=== PATIENT | male | born 1960 | race African-American/Black ===

== ENCOUNTER 2018-08-23 01:34 | Emergency (ER) | payer MEDICAID ==
[~2018-08-23] VITALS: Ht 180.3 cm; Wt 78.9 kg
[~2018-08-23 01:34] MED LIST: FLUT16SP2 BOTHNARES; HYDR-3965 PO; RIFA300C4 PO; TRAM50TA2 PO
[2018-08-23 01:36] VITALS: BP 153/96
[2018-08-23] MEDS ORDERED: IBUP-1984 PO (02:57)
[2018-08-23] MEDS ORDERED: NEOM28.44 TP (02:57)
[2018-08-23] MEDS: ondansetron 4mg rapidly disintigrating tab PO ONE (03:18)
[2018-08-23] MEDS: bacitracin 15gm ointment TP ONE (03:18)
[2018-08-23] MEDS: HYDROcodone/acetaminophen 5mg/325mg tablet PO ONE (03:19)
[2018-08-23] MEDS: ketorolac trometh inj. 60 MG/2 ML VIAL IM ONE (03:20)
== END 2018-08-23 03:26 | disposition home or self-care (01) ==
LOC: ER 01:34
DX: T23.221A Burn of second degree of single right finger (nail) except thumb, initial encounter (principal); F15.90 Other stimulant use, unspecified, uncomplicated; Z79.899 Other long term (current) drug therapy; X08.8XXA Exposure to other specified smoke, fire and flames, initial encounter; Y93.89 Activity, other specified; Y92.89 Other specified places as the place of occurrence of the external cause; Y99.8 Other external cause status
CPT/HCPCS: 16020; 96372; 99284; J1885

== ENCOUNTER 2018-08-30 16:55 | Emergency (ER) | payer MEDICAID ==
[~2018-08-30] VITALS: Ht 180.3 cm; Wt 67.0 kg
[~2018-08-30 16:55] MED LIST changes: +IBUP-1984 PO; +NEOM28.44 TP
[2018-08-30] MEDS ORDERED: nitroGLYCERIN 0.4mg SUBLingual tab SL PRN (17:05)
[2018-08-30] MEDS ORDERED: aspirin 81mg tab.chew PO ONE (17:05)
[2018-08-30 17:41] LABS: ALANINE AMINOTRANSFERASE 70 U/L (12-78); ALBUMIN 3.9 G/DL (3.4-5.0); ALBUMIN/GLOBULIN RATIO 0.9 (1.1-1.5); ALKALINE PHOSPHATASE 88 IU/L (46-116); ANION GAP 10 (8-16); ASPARTATE AMINO TRANSFERASE 34 U/L (10-37); BILIRUBIN,TOTAL 0.3 MG/DL (0.1-1.0); BLOOD UREA NITROGEN 21 MG/DL (7-18); BUN/CREATININE RATIO 18.8 (5.4-32.0); CALCIUM 9.5 MG/DL (8.5-10.1); CHLORIDE 100 MMOL/L (99-107); CREATININE 1.12 MG/DL (0.60-1.10); GLUCOSE 144 MG/DL (70-104); POTASSIUM 4.2 MMOL/L (3.5-5.1); SODIUM 139 MMOL/L (135-145); TOTAL CARBON DIOXIDE 29.4 MMOL/L (24-32); TOTAL PROTEIN 8.1 G/DL (6.4-8.2); eGFR 82 ML/MIN
[2018-08-30 17:53] LABS: HEMOGLOBIN 14.6 g/dl (14.0-17.9); RED BLOOD COUNT 4.61 X10'6 (4.70-6.10); WHITE BLOOD COUNT 6.3 X10'3 (4.5-11.0)
[2018-08-30 17:54] LABS: D-DIMER 0.56 MG/L FEU (0-0.50); HEMATOCRIT 42.4 % (42.0-52.0); MEAN CORPUSCULAR HEMOGLOBIN 31.7 PG (27.0-31.0); MEAN CORPUSCULAR HGB CONC 34.5 % (33.0-36.5); MEAN PLATELET VOLUME 7.6 FL (7.4-10.4); PARTIAL THROMBOPLASTIN TIME 30 SECONDS (22-32); PLATELET COUNT 423 X10'3 (140-440); PROTHROMBIN TIME 9.7 SECONDS (9.0-12.0); RED CELL DISTRIBUTION WIDTH 14.1 % (11.5-14.5)
[2018-08-30 18:01] LABS: PLATELET ESTIMATE NORMAL; TOTAL CELLS COUNTED 100
[2018-08-30 18:02] LABS: SMUDGE CELLS 1+
[2018-08-30] MEDS ORDERED: iohexol 350MG/ML 100ml bottle IV ONE (18:03)
[2018-08-30 18:09] LABS: ETHANOL < 0.010 GM/DL (0.0-0.010)
[2018-08-30 19:15] LABS: URINE AMPHETAMINE SCREEN POSITIVE (Neg); URINE BARBITUATE SCREEN NEGATIVE (Neg); URINE BENZODIAZEPINES SCREEN NEGATIVE (Neg); URINE CANNABINOID SCREEN POSITIVE (Neg); URINE COCAINE SCREEN NEGATIVE (Neg); URINE METHADONE SCREEN NEGATIVE (Neg); URINE OPIATE SCREEN POSITIVE (Neg); URINE PHENCYCLIDINE SCREEN NEGATIVE (Neg)
[2018-08-30] MEDS ORDERED: SILV20CR13 TOP (19:30)
[2018-08-30] MEDS ORDERED: CEPH-571 PO (19:30)
[2018-08-30 20:05] VITALS: BP 132/72
== END 2018-08-30 20:06 | disposition home or self-care (01) ==
LOC: ER 16:56
DX: R07.89 Other chest pain (principal); R06.02 Shortness of breath; F15.10 Other stimulant abuse, uncomplicated; L03.011 Cellulitis of right finger; R53.1 Weakness; R11.0 Nausea; R00.0 Tachycardia, unspecified; R49.0 Dysphonia; F19.10 Other psychoactive substance abuse, uncomplicated; Z79.899 Other long term (current) drug therapy
CPT/HCPCS: 36415; 71045; 71275; 80053; 80305; 80320; 83880; 84484; 85025; 85379; 85610; 85730; 93005; 99284; Q9967

== ENCOUNTER 2019-02-09 16:38 | Emergency (ER) | payer MEDICAID ==
[~2019-02-09] VITALS: Ht 180.3 cm; Wt 40.9 kg
[~2019-02-09 16:38] MED LIST changes: +CEPH-571 PO; -IBUP-1984 PO; +SILV20CR13 TOP
[2019-02-09 17:58] LABS: BASOPHILS # (AUTO) 0.1 X10'3 (0-0.2); BASOPHILS % (AUTO) 1.1 % (0-1); EOSINOPHILS # (AUTO) 0.2 X10'3 (0-0.9); EOSINOPHILS % (AUTO) 3.9 % (0-6); HEMATOCRIT 41.7 % (42.0-52.0); HEMOGLOBIN 13.8 g/dl (14.0-17.9); LYMPHOCYTES % (AUTO) 40.7 % (21-51); MEAN CORPUSCULAR HEMOGLOBIN 30.3 PG (27.0-31.0); MEAN CORPUSCULAR HGB CONC 33.1 g/dL (33.0-36.5); MEAN CORPUSCULAR VOLUME 91.3 FL (78-98); MEAN PLATELET VOLUME 7.7 FL (7.4-10.4); MONOCYTES # (AUTO) 0.4 X10'3 (0-0.9); MONOCYTES % (AUTO) 8.3 % (2-12); NEUTROPHILS # (AUTO) 2.3 X10'3 (1.8-7.7); PLATELET COUNT 350 X10'3 (140-440); RED BLOOD COUNT 4.56 X10'6 (4.70-6.10); RED CELL DISTRIBUTION WIDTH 15.6 % (11.5-14.5); WHITE BLOOD COUNT 4.9 X10'3 (4.5-11.0)
[2019-02-09 18:12] LABS: ALANINE AMINOTRANSFERASE 64 U/L (12-78); ALBUMIN 3.8 G/DL (3.4-5.0); ALKALINE PHOSPHATASE 108 IU/L (46-116); AMYLASE 47 U/L (25-115); ANION GAP 5 (8-16); ASPARTATE AMINO TRANSFERASE 37 U/L (10-37); BILIRUBIN,TOTAL 0.2 MG/DL (0.1-1.0); BLOOD UREA NITROGEN 12 MG/DL (7-18); BUN/CREATININE RATIO 11.1 (5.4-32.0); CHLORIDE 104 MMOL/L (99-107); CREATININE 1.08 MG/DL (0.60-1.10); GLUCOSE 114 MG/DL (70-104); LIPASE 72 U/L (73-393); SODIUM 139 MMOL/L (135-145); TOTAL CARBON DIOXIDE 29.6 MMOL/L (24-32); TOTAL PROTEIN 7.8 G/DL (6.4-8.2); eGFR 85 ML/MIN
[2019-02-09 18:20] VITALS: BP 171/86
[2019-02-09 18:30] LABS: CLARITY,URINE CLEAR (Clear); COLOR,URINE YELLOW (Yellow); GLUCOSE, URINE NEGATIVE (Neg); KETONES,URINE NEGATIVE (Neg); LEUKOCYTE ESTERASE ,URINE NEGATIVE (Neg); NITRITES, URINE NEGATIVE (Neg); OCCULT BLOOD,URINE NEGATIVE (Neg); PROTEIN,URINE NEGATIVE (Neg); UROBILINOGEN,URINE 0.2 E.U/dL (0.2-1.0)
[2019-02-09] MEDS ORDERED: pantoprazole 40mg Tablet.DR PO ONE (18:30)
[2019-02-09 18:31] LABS: UA COLLECTION TYPE CLN CATCH MIDSTREAM
[2019-02-09] MEDS ORDERED: OMEP40CA37 PO (18:44)
== END 2019-02-09 18:58 | disposition home or self-care (01) ==
LOC: ER 16:39
DX: R10.11 Right upper quadrant pain (principal); F15.90 Other stimulant use, unspecified, uncomplicated; Z79.2 Long term (current) use of antibiotics; Z88.6 Allergy status to analgesic agent; Z79.899 Other long term (current) drug therapy; Z98.890 Other specified postprocedural states
CPT/HCPCS: 36415; 80053; 81003; 82150; 83690; 85025; 85610; 99283